=== PATIENT | female | born 1950 | race Caucasian/White ===

== ENCOUNTER 2019-01-18 21:29 | Emergency (ER) | payer MEDICARE, OTHER ==
[~2019-01-18] VITALS: Ht 152.4 cm; Wt 63.5 kg
[2019-01-18 21:40] VITALS: BP_SYST 158
[2019-01-18] MEDS ORDERED: ACETAMINOPHEN 325 MG TABLET PO ONE (22:15)
[2019-01-18 23:43] VITALS: BP_SYST 158
== END 2019-01-18 23:43 | disposition home or self-care (01) ==
LOC: SED 21:29
DX: M17.0 Bilateral primary osteoarthritis of knee (principal); E78.00 Pure hypercholesterolemia, unspecified; E11.9 Type 2 diabetes mellitus without complications; I10 Essential (primary) hypertension
CPT/HCPCS: 99283

== ENCOUNTER 2019-04-23 15:40 | Inpatient (IN) | payer MEDICARE ==
[~2019-04-23] VITALS: Ht 154.9 cm; Wt 71.7 kg
[2019-04-23 15:50] VITALS: BP_SYST 128
--- NOTE | 2019-04-23 15:50 | NUR ---
Patient to ER bed 2 to gown for evaluation. Side rails up. Report given to RENU Cole.
--- NOTE | 2019-04-23 15:55 | NUR ---
Patient AAOx4, primarily Monegasque speaking, accompanied by family. Patient brought in c/o lower abdominal pain, nausea, headache, and weakness. Patient reports PMH of HTN, DM, neuropathy, cholecystectomy, and left hand finger amputations. Skin warm, dry, intact, and respirations even and unlabored. No signs or symptoms of acute distress noted.
--- NOTE | 2019-04-23 16:11 | NUR ---
LEO Christine at bedside examining patient.
[2019-04-23] MEDS ORDERED: ONDANSETRON HCL 4 MG/2 ML VIAL IVP ONE (16:15)
[2019-04-23] MEDS ORDERED: KETOROLAC TROMETHAMINE 15 MG VIAL IVP ONE (16:15)
[2019-04-23] MEDS ORDERED: NACL 0.9% 1,000 ML IV ONE ×2 (16:15→17:15)
[2019-04-23 16:39] LABS: BASOPHILS # (AUTO) 0.2 K/uL (0.0-0.2); BASOPHILS % (AUTO) 0.9 % (0.0-2.0); EOSINOPHILS % (AUTO) 0.1 % (0.0-4.0); HEMATOCRIT 29.2 % (36-48); HEMOGLOBIN 9.7 g/dL (12.0-16.0); LYMPHOCYTES # (AUTO) 2.1 K/uL (1.0-5.5); LYMPHOCYTES % (AUTO) 11.5 % (20.5-51.5); MEAN CORPUSCULAR HEMOGLOBIN 31 pg (27-31); MEAN CORPUSCULAR HGB CONC 33 % (32-36); MEAN CORPUSCULAR VOLUME 93 fL (79.0-98.0); MONOCYTES # (AUTO) 1.4 K/uL (0.0-1.0); MONOCYTES % (AUTO) 7.8 % (1.7-9.3); NEUTROPHILS # (AUTO) 14.5 K/uL (1.8-7.7); NEUTROPHILS % (AUTO) 79.7 % (40.0-70.0); PLATELET COUNT (AUTO) 177 K/uL (130-430); RED BLOOD CELL COUNT(AUTO) 3.16 MIL/uL (4.2-6.2); RED CELL DISTRIBUTION WIDTH 12.2 % (9.0-15.0); WHITE BLOOD COUNT (AUTO) 18.2 K/uL (4.8-10.8)
[2019-04-23 17:14] LABS: CALCIUM 8.9 mg/dL (8.4-11.0); CREATININE 1.73 mg/dL (0.55-1.30)
[2019-04-23] MEDS ORDERED: cefTRIAXone 1 GM IVPB PREMIX 50 ML IV ONE (17:15)
[2019-04-23 17:19] LABS: ALBUMIN 3.4 g/dL (3.4-4.8); TOTAL BILIRUBIN 0.7 mg/dL (0.0-1.0)
[2019-04-23 18:28] LABS: BILIRUBIN,URINE NEGATIVE (NEGATIVE); BLOOD, URINE NEGATIVE (NEGATIVE); CLARITY/URINE CLOUDY (CLEAR); COLOR,URINE YELLOW (YELLOW); GLUCOSE,URINE NEGATIVE (NEGATIVE); KETONES,URINE NEGATIVE (NEGATIVE); LEUKOCYTE ESTERASE ,URINE 3+ (NEGATIVE); NITRITE, URINE NEGATIVE (NEGATIVE); PROTEIN URINE TRACE (NEGATIVE); UROBILINOGEN,URINE 0.2 (0.2-1.0)
[2019-04-23] MEDS ORDERED: SITA100T11 PO (18:42)
[2019-04-23] MEDS ORDERED: GLU500 PO (18:42)
[2019-04-23] MEDS ORDERED: GABA-529 PO (18:42)
[2019-04-23] MEDS ORDERED: CHOL100062 PO (18:42)
[2019-04-23] MEDS ORDERED: LIP20 PO (18:42)
[2019-04-23] MEDS ORDERED: CARV3.1246 PO (18:42)
[2019-04-23] MEDS ORDERED: AMOX500C2 PO (18:42)
--- NOTE | 2019-04-23 18:42 | NUR ---
Medication reconciliation completed with information provided by PATIENT. Any prior medication reconciliation on file was reviewed and corrected.
--- NOTE | 2019-04-23 18:55 | NUR ---
Patient will be admitted to care of Dr. Christensen. Admission to Med Surg unit when hospital room and bed available. Belongings list completed. Summary report printed. Report will be given at bedside.
[2019-04-23 19:09] LABS: BACTERIA,URINE MANY /HPF (None Seen); MUCUS,URINE None Seen /LPF (None Seen); RBC,URINE 0-3 /HPF (0-3); WBC,URINE >100 /HPF (0-3)
--- NOTE | 2019-04-23 19:29 | NUR ---
Endorsed bedside report to oncoming RN for continuation of care.
--- NOTE | 2019-04-23 19:50 | NUR ---
Pt care assumed from RN. Pt stable, no s/s of distress noted. Will continue to monitor.
--- NOTE | 2019-04-23 20:20 | NUR ---
Patient will be admitted to [facility]. Admitted to Med Surg unit. Will go to room 126A. Belongings list completed. Summary report printed. Report will be given at bedside.
--- NOTE | 2019-04-23 20:35 | NUR ---
ADMISSION: The patient, ADAN MONGE, 68 y/o, F admitted by RUFUS LEHMAN MD,with the diagnosis of Acute Pylonephritis , toroom 126b , was given written information regarding hospital policies, unit procedures and contact persons.
[2019-04-23 20:39] VITALS: BP_SYST 140
--- NOTE | 2019-04-23 21:09 | NUR ---
ACCUCHECK BLOOD SUGAR OF 195, 2 UNITS OF INSULIN GIVEN PER SLIDING SCALE.
[2019-04-23] MEDS: INSULIN REGULAR, HUMAN 100 UNITS/ML, 10 ML VIAL (humuLIN R) SUBCUT PRN (21:11)
--- NOTE | 2019-04-23 22:38 | NUR ---
RN ROUNDS: PT AMBULATED TO RESTROOM WITH STEADY GAIT WITH ASSISTANCE FROM HER DAUGHTER. PT TOLERATED ACTIVITY WELL WITH NO SOB NOTED. PT RETURNED TO BED AND REPOSITIONED HERSELF FOR COMFORT. PT ENCOURAGED TO CALL FOR ANY ASSISTANCE. PT'S DAUGHTER REMAINS AT BEDSIDE. SAFETY MAINTAINED. WILL MONITOR.
[2019-04-24] MEDS ORDERED: AMOXICILLIN 500 MG CAPSULE PO SCH (00:15)
[2019-04-24] MEDS ORDERED: cefTRIAXone 1 GM in D5W 50 ML IV SCH (00:15)
[2019-04-24] MEDS ORDERED: GABAPENTIN 100 MG CAPSULE PO SCH (00:15)
[2019-04-24 00:17] VITALS: BP_SYST 115
--- NOTE | 2019-04-24 00:22 | NUR ---
ROUNDS DR. LEHMAN AT NURSES STATION. PT SEEN AND EXAMINED. POC DISCUSSED.
[2019-04-24] MEDS ORDERED: KETOROLAC TROMETHAMINE 15 MG VIAL IVP PRN ×2 (00:30→17:30)
[2019-04-24] MEDS ORDERED: ONDANSETRON HCL 4 MG/2 ML VIAL IVP PRN ×2 (00:30→19:15)
[2019-04-24] MEDS ORDERED: cefTRIAXone 1 GM IVPB PREMIX 50 ML IV ONE (00:39)
[2019-04-24] MEDS ORDERED: HYDROcodone/ACETAMIN 5-325 MG TAB (NORCO/ VICODIN) PO PRN ×2 (00:45→20:15)
[2019-04-24] MEDS ORDERED: traMADol HCL HCL 50 MG TABLET (ULTRAM) PO PRN (00:45)
[2019-04-24] MEDS: NACL 0.9% 1,000 ML IV SCH ×2 (00:51→12:03)
--- NOTE | 2019-04-24 02:05 | NUR ---
RN ROUNDS: PT RESTING IN BED WITH EYES CLOSED, PT'S DAUGHTER IS AT BEDSIDE. VISIBLE SYMMETRICAL RISE AND FALL OF CHEST TO ROOM AIR. IVF INFUSING AT ORDERED RATE. SAFETY MAINTAINED. WILL MONITOR.
--- NOTE | 2019-04-24 04:48 | NUR ---
AMBULATED TO RESTROOM PT AMBULATED WITH STEADY GAIT TO RESTROOM, WITH ASSISTANCE FROM HER DAUGHTER. PT TOLERATED ACTIVITY WELL WITH NO SOB NOTED, NO SIGN OF RESPIRATORY DISTRESS. PT RETURNED TO BED SAFELY. PT ENCOURAGED TO CALL FOR ANY ASSISTANCE, CALL LIGHT IS WITH PT. SAFETY PRECAUTIONS OBSERVED. WILL MONITOR.
[2019-04-24] MEDS: INSULIN REGULAR, HUMAN 100 UNITS/ML, 10 ML VIAL (humuLIN R) SUBCUT PRN ×4 (06:15→22:11)
--- NOTE | 2019-04-24 06:15 | NUR ---
ACCUCHECK/PAIN PT BLOOD SUGAR 177, 2 UNITS REGULAR INSULIN GIVEN PER SLIDING SCALE. PT REPORTING HEADACHE OF MODERATE PAIN LEVEL, TRAMADOL PO GIVEN ORDERED. MEDICATION EXPLAINED TO PT, PT VERBALIZED UNDERSTANDING. SAFETY PRECAUTIONS MAINTAINED. WILL MONITOR.
--- NOTE | 2019-04-24 06:41 | NUR ---
CLOSING NOTE PT RESTING IN BED, AAOX4, WITH DAUGHTER AT BEDSIDE. BREATHING IS EVEN AND EFFORTLESS TO ROOM AIR. IVF INFUSING ORDERED, NO INFILTRATION AT IV SITE. PT HAS BEEN MEDICATED FOR PAIN. NO S/S OF ACUTE DISTRESS. ALL NEEDS MET DURING SHIFT. SAFETY MAINTAINED. WILL CONTINUE TO MONITOR UNTIL PT CARE IS ENDORSED TO DAY SHIFT RN.
--- NOTE | 2019-04-24 08:03 | NUR ---
patient having renal u/s this time.
[2019-04-24 08:49] VITALS: BP_SYST 166
[2019-04-24] MEDS: CARVEDILOL 3.125 MG TABLET (COREG) PO SCH ×2 (08:56→22:05)
[2019-04-24] MEDS: PANTOPRAZOLE SODIUM 40 MG TAB PO SCH (08:57)
[2019-04-24] MEDS: ATORVASTATIN 20 MG TABLET PO SCH (08:57)
[2019-04-24] MEDS: CHOLECALCIFEROL (VITAMIN D3) 2,000 UNIT TABLET PO SCH (09:00)
--- NOTE | 2019-04-24 09:00 | NUR ---
Asked unit secretaty to call Dr Christensen to speak with Dr Olivares for abnormal result.
--- NOTE | 2019-04-24 10:19 | NUR ---
CONSULTATION PAGED/CALLED Reason for Consultation: [] ACUTE APPENDICITIS Person Who was Notified: [] ROSALIA Consulting Physician: [] DR Kalyn MARINA [employer] Setter Specialty: [] GEN SURGEON Ordering Physician: [] DR LEHMAN
[2019-04-24 10:54] LABS: BASOPHILS # (AUTO) 0.1 K/uL (0.0-0.2); BASOPHILS % (AUTO) 0.7 % (0.0-2.0); EOSINOPHILS % (AUTO) 0.3 % (0.0-4.0); LYMPHOCYTES % (AUTO) 16.9 % (20.5-51.5); MEAN CORPUSCULAR HEMOGLOBIN 31 pg (27-31); MEAN CORPUSCULAR HGB CONC 33 % (32-36); MEAN CORPUSCULAR VOLUME 93 fL (79.0-98.0); MONOCYTES # (AUTO) 0.9 K/uL (0.0-1.0); MONOCYTES % (AUTO) 7.3 % (1.7-9.3); NEUTROPHILS # (AUTO) 8.9 K/uL (1.8-7.7); NEUTROPHILS % (AUTO) 74.8 % (40.0-70.0); PLATELET COUNT (AUTO) 148 K/uL (130-430); RED BLOOD CELL COUNT(AUTO) 2.89 MIL/uL (4.2-6.2); RED CELL DISTRIBUTION WIDTH 12.6 % (9.0-15.0); WHITE BLOOD COUNT (AUTO) 11.8 K/uL (4.8-10.8)
[2019-04-24 11:04] LABS: CALCIUM 8.3 mg/dL (8.4-11.0); CREATININE 1.54 mg/dL (0.55-1.30); POTASSIUM 4.7 mmol/L (3.5-5.1)
--- NOTE | 2019-04-24 11:08 | NUR ---
CONSULTATION PAGED/CALLED Reason for Consultation: [] CARDIAC CLEARANCE Person Who was Notified: [] FABIO Consulting Physician: [] DR Ag [facility] Specialty: [] CARDIOLOGY Ordering Physician: [] DR LEHMAN
[2019-04-24 11:09] LABS: PROTHROMBIN TIME 10.5 SECS (9.5-12.5)
[2019-04-24] MEDS: PIPERACILLIN/TAZO 3.375/DEX-IS 50 ML IV SCH ×2 (11:55→18:07)
--- NOTE | 2019-04-24 12:04 | NUR ---
2decho being done this time, pt seen by dr kenney and cleared pt for surgery.
[2019-04-24 14:15] VITALS: BP_SYST 159
--- NOTE | 2019-04-24 15:16 | NUR ---
Dietitian Recommendations * Recommend continuing NPO * Consider advance to diabetic-friendly diet if/when medically appropriate LP, RD Please refer to Nutrition Assessment for details. Addendum: 04/24/19 at [address] Amended: Links added.
[2019-04-24] MEDS: ONDANSETRON HCL 4 MG/2 ML VIAL IVP PRN (15:19)
[2019-04-24 17:01] VITALS: BP_SYST 156
--- NOTE | 2019-04-24 17:23 | NUR ---
ATTENDING MD DR LEHMAN WAS CALLED, RE: PAIN MEDICATION FOR SEVERE VERMA. SPOKE TO SAILAJA.
[2019-04-24] MEDS ORDERED: METOCLOPRAMIDE HCL 10 MG/2 ML VIAL IVP PRN (17:30)
--- NOTE | 2019-04-24 18:30 | NUR ---
PT WHEELED OUT TO SURGERY, BOTH DR MARINA AND MICHELLE SPOKE WITH PATIENT AND PT'S DAUGHTER AT BEDSIDE.
[2019-04-24] MEDS ORDERED: fentaNYL CITRATE/PF 100 MCG/2 ML AMP IVP PRN ×2 (19:15)
--- NOTE | 2019-04-24 19:46 | NUR ---
CLOSING NOTES, PT IN SURGERY FOR LAP APPY. ENDORSED TO NIGHT RENU JAMIL.
--- NOTE | 2019-04-24 20:05 | NUR ---
Opening notes Patient is still in OR.
[2019-04-24] MEDS ORDERED: hydrALAZINE HCL 20 MG/ML VIAL ONE (20:25)
--- NOTE | 2019-04-24 20:40 | NUR ---
Patient back on unit No signs of distress noted. Breathing even and unlabored on room air. Vital signs are stable. Dressing to incisions are clean, dry and intact x3. Educated patient on incentive spirometer. Patient able to inspire 500 ml. Call light with the patient. Safety precautions in place. Family at bedside.
[2019-04-24 21:00] VITALS: BP_SYST 128
[2019-04-24 21:45] VITALS: BP_SYST 128
--- NOTE | 2019-04-24 22:30 | NUR ---
Resting Patient resting in bed, talking to family. No signs of distress noted. Breathing even and unlabored. Call light with the patient. Safety precautions in place.
[2019-04-25] VITALS (7 sets, daily range): BP systolic 132–176
[2019-04-25] MEDS: PIPERACILLIN/TAZO 3.375/DEX-IS 50 ML IV SCH ×5 (00:14→23:32)
[2019-04-25] MEDS: NACL 0.9% 1,000 ML IV SCH ×3 (00:15→22:38)
[2019-04-25] MEDS: ONDANSETRON HCL 4 MG/2 ML VIAL IVP PRN ×2 (00:29→08:18)
--- NOTE | 2019-04-25 00:30 | NUR ---
Pain/Nausea Patient complaining of nausea and pain to head. PRN medications given. Educated the action and side effects of medications. Patient verbalized understanding. No other needs. Call light with the patient. Safety precautions in place.
--- NOTE | 2019-04-25 02:00 | NUR ---
Resting Patient resting, talking to son. No signs of distress noted. Breathing even and unlabored. Call light with the patient. Safety precautions in place. Call light with the patient. Safety precautions in place.
--- NOTE | 2019-04-25 04:00 | NUR ---
Sleeping No signs of distress noted. Breathing even and unlabored. Call light with the patient. Safety precautions in place.
[2019-04-25] MEDS: INSULIN REGULAR, HUMAN 100 UNITS/ML, 10 ML VIAL (humuLIN R) SUBCUT PRN ×4 (06:12→22:38)
[2019-04-25 06:30] LABS: BASOPHILS # (AUTO) 0.1 K/uL (0.0-0.2); BASOPHILS % (AUTO) 0.5 % (0.0-2.0); EOSINOPHILS % (AUTO) 0.1 % (0.0-4.0); HEMATOCRIT 25.4 % (36-48); HEMOGLOBIN 8.5 g/dL (12.0-16.0); LYMPHOCYTES # (AUTO) 1.8 K/uL (1.0-5.5); LYMPHOCYTES % (AUTO) 16.7 % (20.5-51.5); MEAN CORPUSCULAR HEMOGLOBIN 31 pg (27-31); MEAN CORPUSCULAR HGB CONC 34 % (32-36); MEAN CORPUSCULAR VOLUME 93 fL (79.0-98.0); MONOCYTES # (AUTO) 0.7 K/uL (0.0-1.0); MONOCYTES % (AUTO) 6.6 % (1.7-9.3); NEUTROPHILS # (AUTO) 8.3 K/uL (1.8-7.7); NEUTROPHILS % (AUTO) 76.1 % (40.0-70.0); PLATELET COUNT (AUTO) 154 K/uL (130-430); RED BLOOD CELL COUNT(AUTO) 2.73 MIL/uL (4.2-6.2); RED CELL DISTRIBUTION WIDTH 12.7 % (9.0-15.0); WHITE BLOOD COUNT (AUTO) 10.9 K/uL (4.8-10.8)
[2019-04-25 06:50] LABS: ALBUMIN 2.6 g/dL (3.4-4.8); CALCIUM 8.2 mg/dL (8.4-11.0); CREATININE 1.36 mg/dL (0.55-1.30); POTASSIUM 4.8 mmol/L (3.5-5.1); TOTAL BILIRUBIN 0.3 mg/dL (0.0-1.0)
--- NOTE | 2019-04-25 06:50 | NUR ---
Closing notes Patient awake in bed. No signs of distress noted. Breathing even and unlabored. IV patent and intact, infusing fluids. Patient denies pain, has some nausea, but does not want any medications. Dressings are clean,dry and intact. All needs met throughout the shift. call light with the patient. Safety precautions in place. Will endorse care to day shift RN.
--- NOTE | 2019-04-25 07:15 | NUR ---
report received at this time at bedside. patient awake alert x 4. zambian speaking. lungs bilaterally diminished at the bases. abdomen has 3 small dressing noted. no bleeding noted. dry/intact. has iv access on the rt hand #22 with Normal Saline at 80cc/hr infusing on well. bed in low position, alarmed and locked. call lights within reach. instructed to call for assistance. family at the bedside.
[2019-04-25] MEDS: ATORVASTATIN 20 MG TABLET PO SCH (08:25)
[2019-04-25] MEDS: PANTOPRAZOLE SODIUM 40 MG TAB PO SCH (08:25)
[2019-04-25] MEDS: CARVEDILOL 3.125 MG TABLET (COREG) PO SCH ×2 (08:26→20:58)
[2019-04-25] MEDS: metFORMIN HCL 500 MG TABLET PO SCH ×2 (08:26→09:00)
[2019-04-25] MEDS: CHOLECALCIFEROL (VITAMIN D3) 2,000 UNIT TABLET PO SCH (08:27)
--- NOTE | 2019-04-25 09:00 | NUR ---
due medication given as ordered.
--- NOTE | 2019-04-25 10:30 | NUR ---
repositioned to sides. made comfortable.
--- NOTE | 2019-04-25 12:00 | NUR ---
latest bs 186mg/dl. coverage given.
--- NOTE | 2019-04-25 12:30 | NUR ---
iv antibiotic hanged at this time.
[2019-04-25] MEDS ORDERED: cloNIDine HCL 0.1 MG TABLET PO PRN (12:45)
--- NOTE | 2019-04-25 13:00 | NUR ---
GI Patient is nauseated ,bowel sound hypoactive burping, tolerates water , abdominal dressing x3 dry/clean , blood pressure rechecked WNL , out of bed to bathroom 3x , no dizziness., safety/fall precaution initiated.
--- NOTE | 2019-04-25 13:40 | NUR ---
endorsed to Kalani SEARS
--- NOTE | 2019-04-25 14:00 | NUR ---
Patient nausea is better after Reglan IV push was given, tolerating clear liquids diet.
[2019-04-25] MEDS ORDERED: ACETAMINOPHEN 325 MG TABLET PO PRN (14:45)
[2019-04-25] MEDS ORDERED: KETOROLAC TROMETHAMINE 15 MG VIAL IVP PRN (14:45)
--- NOTE | 2019-04-25 15:34 | NUR ---
Mobility Out of bed to bathroom with standby assist tolerates well without dizziness.
--- NOTE | 2019-04-25 17:12 | NUR ---
Note At family request, CONVEYOR MECHANIC provided patient's son, Isai, with a note for work stating he was here last night with patient. Patient agreed.
--- NOTE | 2019-04-25 20:00 | NUR ---
INITIAL NOTE AT INITIAL ASSESSMENT, PATIENT IS RESTING IN BED, STABLE, NO SIGNS OF RESPIRATORY DISTRESS. FAMILY IS AT BEDSIDE. PATIENT VERBALIZES NO PAIN. PLAN OF CARE FOR THE EVENING IS COMMUNICATED WITH THE PATIENT AND HER FAMILY. PATIENT SUCCESSFULLY DEMONSTRATES CORRECT USAGE OF CALL LIGHT. BED IS LOCKED, ALARMED, AND AT THE LOWEST LEVEL. FALL, SAFETY, AND RESPIRATORY PRECAUTIONS WILL BE TAKEN THROUGHOUT THE SHIFT.
--- NOTE | 2019-04-25 20:39 | NUR ---
PAGED PAGED DR. LEHMAN IN REGARDS TO CRITICAL LAB VALUES, SPOKE DOUG
--- NOTE | 2019-04-25 21:00 | NUR ---
ISOLATION: MDRO AND E.COLI OF URINE NEW CRITICAL LAB FOR POSITIVE URINE CULTURE FOR MDRO AND E.COLI OF URINE COMMUNICATION AND EDUCATION ARE DONE AT THIS TIME WITH THE PATIENT AND HER FAMILY. ALL QUESTIONS HAVE BEEN ADDRESSED. CHARGE NURSE [place] AND ROSALINE BURR ARE MADE AWARE, ISOLATION SIGN PLACED IN FRONT OF PATIENT'S ROOM.
--- NOTE | 2019-04-25 22:00 | NUR ---
NOTE BLOOD SUGAR CHECK REQUIRES INSULIN COVERAGE PER SSI ORDERED BY MD. PATIENT IS RESTING IN BED, STABLE, NO SIGNS OF RESPIRATORY DISTRESS. CALL LIGHT WITHIN REACH. BED IS LOCKED, ALARMED, AND AT THE LOWEST LEVEL.
--- NOTE | 2019-04-26 | NUR ---
INCENTIVE SPIROMETER TEACHING NOTE PATIENT SUCCESSFULLY DEMONSTRATES CORRECT USAGE OF INCENTIVE SPIROMETER. AT THIS TIME, SHE IS AVERAGING 500 ML WITHOUT PAIN DURING USAGE. PATIENT VERBALIZES KNOWLEDGE TO "PRACTICE 10 TIMES AN HOUR". HER OXYGEN SATURATION IS AT A STABLE 99% ON ROOM AIR. WILL CONTINUE TO ENCOURAGE USAGE OF INCENTIVE SPIROMETER THROUGHOUT THE SHIFT.
[2019-04-26 00:44] VITALS: BP_SYST 131
--- NOTE | 2019-04-26 02:00 | NUR ---
NOTE PATIENT IS SLEEPING, STABLE, NO SIGNS OF RESPIRATORY DISTRESS. CALL LIGHT WITHIN REACH. BED IS LOCKED, ALARMED, AND AT THE LOWEST LEVEL.
--- NOTE | 2019-04-26 04:00 | NUR ---
NOTE PATIENT IS SLEEPING, STABLE, NO SIGNS OF RESPIRATORY DISTRESS. CALL LIGHT WITHIN REACH. BED IS LOCKED, ALARMED, AND AT THE LOWEST LEVEL.
--- NOTE | 2019-04-26 06:00 | NUR ---
CLOSING NOTE PATIENT SLEPT WELL THROUGHOUT THE NIGHT, SHE VERBALIZED NO PAIN THROUGHOUT THE NIGHT. AT THIS TIME, SHE IS RESTING IN BED, STABLE, NO SIGNS OF RESPIRATORY DISTRESS. CALL LIGHT WITHIN REACH. BED IS LOCKED, ALARMED, AND AT THE LOWEST LEVEL. FALL, SAFETY, RESPIRATORY, AND ISOLATION PRECAUTIONS HAVE BEEN TAKEN THROUGHOUT THE SHIFT. WILL CONTINUE TO MONITOR UNTIL SHIFT REPORT IS GIVEN AT BEDSIDE TO AM NURSE.
[2019-04-26 06:27] LABS: BASOPHILS # (AUTO) 0.1 K/uL (0.0-0.2); BASOPHILS % (AUTO) 0.7 % (0.0-2.0); EOSINOPHILS # (AUTO) 0.1 K/uL (0.0-0.4); HEMATOCRIT 24.7 % (36-48); HEMOGLOBIN 8.2 g/dL (12.0-16.0); LYMPHOCYTES # (AUTO) 1.7 K/uL (1.0-5.5); LYMPHOCYTES % (AUTO) 19.9 % (20.5-51.5); MEAN CORPUSCULAR HEMOGLOBIN 31 pg (27-31); MEAN CORPUSCULAR HGB CONC 33 % (32-36); MEAN CORPUSCULAR VOLUME 93 fL (79.0-98.0); MONOCYTES # (AUTO) 0.7 K/uL (0.0-1.0); MONOCYTES % (AUTO) 8.2 % (1.7-9.3); NEUTROPHILS # (AUTO) 6.2 K/uL (1.8-7.7); NEUTROPHILS % (AUTO) 70.2 % (40.0-70.0); PLATELET COUNT (AUTO) 152 K/uL (130-430); RED BLOOD CELL COUNT(AUTO) 2.64 MIL/uL (4.2-6.2); RED CELL DISTRIBUTION WIDTH 12.4 % (9.0-15.0); WHITE BLOOD COUNT (AUTO) 8.8 K/uL (4.8-10.8)
[2019-04-26] MEDS: PIPERACILLIN/TAZO 3.375/DEX-IS 50 ML IV SCH ×2 (06:35→11:38)
[2019-04-26] MEDS: INSULIN REGULAR, HUMAN 100 UNITS/ML, 10 ML VIAL (humuLIN R) SUBCUT PRN ×2 (06:38→11:40)
[2019-04-26 06:56] LABS: ALBUMIN 2.5 g/dL (3.4-4.8); CREATININE 1.47 mg/dL (0.55-1.30); POTASSIUM 3.4 mmol/L (3.5-5.1); TOTAL BILIRUBIN 0.4 mg/dL (0.0-1.0)
--- NOTE | 2019-04-26 07:30 | NUR ---
OPENING NOTE: RECEIVED REPORT FROM [employer]URING CONSULTANT. PATIENT IS RESTING COMFORTABLY IN BED. NO S/S OF DISTRESS OR SOB. PATIENT IS ALERT AND ORIENTED. IV IS PATENT AND INFUSING. NO COMPLAINTS OF PAIN. PATIENT IS ALERT AND ORIENTED, ABLE TO EXPRESS NEEDS, AND ASK FOR ASSISTANCE. CALL LIGHT IN REACH, BED IN LOWEST POSITION, AND WILL CONTINUE TO MONITOR.
[2019-04-26 08:11] VITALS: BP_SYST 162
[2019-04-26] MEDS: CHOLECALCIFEROL (VITAMIN D3) 2,000 UNIT TABLET PO SCH (08:50)
[2019-04-26] MEDS: CARVEDILOL 3.125 MG TABLET (COREG) PO SCH (08:50)
[2019-04-26] MEDS: ATORVASTATIN 20 MG TABLET PO SCH (08:50)
[2019-04-26] MEDS: PANTOPRAZOLE SODIUM 40 MG TAB PO SCH (08:50)
[2019-04-26] MEDS: NACL 0.9% 1,000 ML IV SCH (08:52)
[2019-04-26 11:06] LABS: BASOPHILS # (AUTO) 0.1 K/uL (0.0-0.2); EOSINOPHILS # (AUTO) 0.1 K/uL (0.0-0.4); HEMATOCRIT 28.4 % (36-48); HEMOGLOBIN 9.5 g/dL (12.0-16.0); LYMPHOCYTES # (AUTO) 2.1 K/uL (1.0-5.5); LYMPHOCYTES % (AUTO) 19.3 % (20.5-51.5); MEAN CORPUSCULAR HEMOGLOBIN 31 pg (27-31); MEAN CORPUSCULAR HGB CONC 33 % (32-36); MEAN CORPUSCULAR VOLUME 93 fL (79.0-98.0); MONOCYTES # (AUTO) 0.8 K/uL (0.0-1.0); MONOCYTES % (AUTO) 7.9 % (1.7-9.3); NEUTROPHILS # (AUTO) 7.7 K/uL (1.8-7.7); PLATELET COUNT (AUTO) 199 K/uL (130-430); RED BLOOD CELL COUNT(AUTO) 3.07 MIL/uL (4.2-6.2); RED CELL DISTRIBUTION WIDTH 12.6 % (9.0-15.0); WHITE BLOOD COUNT (AUTO) 10.8 K/uL (4.8-10.8)
[2019-04-26 11:12] LABS: BASOPHILS % (AUTO) 0.7 % (0.0-2.0); EOSINOPHILS % (AUTO) 1.1 % (0.0-4.0)
[2019-04-26 11:21] LABS: TOTAL IRON BIND. CAPACITY 235 ug/dL (250-450)
--- NOTE | 2019-04-26 12:00 | NUR ---
RN ROUNDS PATIENT IS RESTING COMFORTABLY IN BED. NO S/S OF DISTRESS OR SOB. PATIENT IS AWAKE AND ALERT. FAMILY AT BEDSIDE. NO COMPLAINTS AT THIS TIME. CALL LIGHT IN REACH, BED IN LOWEST POSITION, AND WILL CONTINUE TO MONITOR.
[2019-04-26 12:38] VITALS: BP_SYST 152
[2019-04-26] MEDS ORDERED: CEPHALEXIN 500 MG CAPSULE PO ONE (12:45)
[2019-04-26] MEDS ORDERED: CEPH-568 PO (13:21)
[2019-04-26] MEDS ORDERED: L.RH1CAP PO (13:22)
[2019-04-26 13:35] VITALS: BP_SYST 152
--- NOTE | 2019-04-26 14:04 | NUR ---
D/C Patient Patient given medication reconciliation form and D/C instructions. Exit Care provided. Patient verbalized understanding. MD discussed with patient the results and treatment provided. Ambulatory with steady gait for discharge to home. Patient in stable condition, ID band removed. IV catheter removed, intact and dressing applied, no active bleeding. Rx of Keflex and probiotic given. Patient educated on pain management. All belongings sent with patient.
[2019-04-26] MEDS ORDERED: CEPHALEXIN 500 MG CAPSULE PO SCH (18:00)
== END 2019-04-26 14:04 | disposition home or self-care (01) | DRG 853 ==
LOC: SED 15:40 → SMU 18:49
PROVIDERS: ADMIT Internal Medicine; ATTEND Internal Medicine
PROC: 0DTJ4ZZ Resection of Appendix, Percutaneous Endoscopic Approach (ICD-10-PCS; principal; 2019-04-24 18:35)
DX: A41.9 Sepsis, unspecified organism (principal); N17.0 Acute kidney failure with tubular necrosis; N10 Acute pyelonephritis; K35.80 Unspecified acute appendicitis; E44.0 Moderate protein-calorie malnutrition; B96.20 Unspecified Escherichia coli [E. coli] as the cause of diseases classified elsewhere; D63.8 Anemia in other chronic diseases classified elsewhere; R79.89 Other specified abnormal findings of blood chemistry; E78.5 Hyperlipidemia, unspecified; E66.3 Overweight; E11.65 Type 2 diabetes mellitus with hyperglycemia; I10 Essential (primary) hypertension; Z87.440 Personal history of urinary (tract) infections; Z90.49 Acquired absence of other specified parts of digestive tract; Z79.899 Other long term (current) drug therapy; Z79.84 Long term (current) use of oral hypoglycemic drugs; Z89.022 Acquired absence of left finger(s); Z68.29 Body mass index [BMI] 29.0-29.9, adult
CPT/HCPCS: 36415; 71045; 76770; 80048; 80053; 81000-TC; 82962; 83036; 83540-TC; 83550-TC; 83605; 83690-TC; 85025; 85610-TC; 87040-TC; 87081; 87086; 87186-TC; 88304; 93005; 93306; 94010; 96361; 96365; 99285; C1727; J0360; J0696; J1815; J1885; J1956; J2405; J2543; J2765; J7030; J7060

== ENCOUNTER 2022-09-26 11:07 | Inpatient (IN) | payer MEDICARE ==
[~2022-09-26] VITALS: Ht 152.4 cm; Wt 70.8 kg
[~2022-09-26 11:07] MED LIST: CARV3.1246 PO; CEPH-568 PO; CHOL100062 PO; GABA-529 PO; L.RH1CAP PO; LIP20 PO; SITA100T11 PO
[2022-09-26 11:22] VITALS: BP_SYST 201
[2022-09-26] MEDS ORDERED: NACL 0.9% 1,000 ML IV ONE (13:30)
[2022-09-26] MEDS ORDERED: DEXTROSE 50% JECT 50 ML DISP.SYRIN IVP PRN (14:15)
[2022-09-26] MEDS ORDERED: ATOR20TA64 PO (14:15)
[2022-09-26] MEDS ORDERED: INSU100I68 SUBCUT (14:15)
[2022-09-26] MEDS ORDERED: CHOL100062 PO (14:15)
[2022-09-26] MEDS ORDERED: METF-380 PO (14:15)
[2022-09-26] MEDS ORDERED: DOCU-156 PO (14:15)
[2022-09-26 14:29] LABS: BASOPHILS # (AUTO) 0.1 K/uL (0.0-0.2); BASOPHILS % (AUTO) 1.1 % (0.0-2.0); EOSINOPHILS # (AUTO) 0.1 K/uL (0.0-0.4); EOSINOPHILS % (AUTO) 0.9 % (0.0-4.0); HEMATOCRIT 31.8 % (36-48); HEMOGLOBIN 10.6 g/dL (12.0-16.0); LYMPHOCYTES # (AUTO) 2.9 K/uL (1.0-5.5); LYMPHOCYTES % (AUTO) 30.4 % (20.5-51.5); MEAN CORPUSCULAR HEMOGLOBIN 30 pg (27-31); MEAN CORPUSCULAR HGB CONC 33 % (32-36); MEAN CORPUSCULAR VOLUME 90 fL (79.0-98.0); MONOCYTES # (AUTO) 0.7 K/uL (0.0-1.0); MONOCYTES % (AUTO) 7.4 % (1.7-9.3); NEUTROPHILS # (AUTO) 5.7 K/uL (1.8-7.7); NEUTROPHILS % (AUTO) 60.2 % (40.0-70.0); PLATELET COUNT (AUTO) 225 K/uL (130-430); RED BLOOD CELL COUNT(AUTO) 3.53 MIL/uL (4.2-6.2); RED CELL DISTRIBUTION WIDTH 12.9 % (9.0-15.0); WHITE BLOOD COUNT (AUTO) 9.5 K/uL (4.8-10.8)
[2022-09-26 14:41] LABS: ANION GAP 7 (5-15); CHLORIDE 101 mmol/L (98-107); CREATININE 1.47 mg/dL (0.55-1.30); GLUCOSE 232 mg/dL (70-99); UREA NITROGEN, BLOOD 37 mg/dL (8-21)
[2022-09-26 14:56] LABS: ALANINE AMINOTRANSFERASE 23 U/L (12-78); ALBUMIN 3.9 g/dL (3.4-4.8); ASPARTATE AMINOTRANSFERASE 21 U/L (10-37); TOTAL BILIRUBIN 0.3 mg/dL (0.0-1.0)
[2022-09-26 14:59] LABS: INR 0.9 (0.8-1.2); PROTHROMBIN TIME 9.5 SECS (9.5-12.5)
[2022-09-26] MEDS ORDERED: LR 1,000 ML IV ONE (15:00)
[2022-09-26] MEDS ORDERED: PIPERACILLIN/TAZO 3.375 GM in NS 50 ML IV ONE (15:00)
[2022-09-26 15:54] LABS: ERYTHROCYTE SEDIMENTATION RATE 53 MM/HR (0-20)
[2022-09-26] MEDS ORDERED: PIPERACILLIN/TAZOBACTAM 3.375 GM/VIAL (ZOSYN) IV ONE (16:19)
[2022-09-26] MEDS ORDERED: GABAPENTIN 100 MG CAPSULE PO PRN (17:00)
[2022-09-26] MEDS ORDERED: DOCUSATE SODIUM 100 MG CAPSULE PO PRN (17:00)
[2022-09-26] MEDS ORDERED: NALOXONE HCL 0.4 MG/ML AMP (NARCAN) IVP PRN (17:00)
[2022-09-26] MEDS ORDERED: ONDANSETRON HCL 4 MG/2 ML VIAL IVP PRN (17:00)
[2022-09-26] MEDS ORDERED: MORPHINE 2 MG/ML INJ. SYRINGE IVP PRN (17:00)
[2022-09-26] MEDS ORDERED: PHENOL/ORAL ANESTHETIC 177 ML BOTTLE MM PRN (17:00)
[2022-09-26] MEDS ORDERED: CARVEDILOL 3.125 MG TABLET (COREG) PO ONE (17:15)
[2022-09-26] MEDS ORDERED: PANTOPRAZOLE SODIUM 40 MG/VIAL (PROTONIX) IVP ONE (17:30)
[2022-09-26 17:50] VITALS: BP_SYST 152
[2022-09-26 20:00] VITALS: BP_SYST 158
[2022-09-26] MEDS: LACTOBACILLUS RHAMNOSUS GG 1 CAP CAPSULE PO SCH (20:59)
[2022-09-26] MEDS ORDERED: INSULIN GLARGINE YFGN SUBCUT SCH (21:00)
[2022-09-26] MEDS: INSULIN GLARGINE 100 UNITS/ML, 10 ML VIAL SUBCUT SCH (21:01)
[2022-09-26] MEDS: PIPERACILLIN/TAZO 3.375/DEX-IS 50 ML IV SCH (23:31)
[2022-09-27] VITALS: BP_SYST 154
[2022-09-27 04:00] VITALS: BP_SYST 149
[2022-09-27] MEDS: PIPERACILLIN/TAZO 3.375/DEX-IS 50 ML IV SCH ×3 (06:28→18:04)
[2022-09-27] MEDS: INSULIN REGULAR, HUMAN 100 UNITS/ML, 3 ML VIAL (humuLIN R) SUBCUT PRN ×3 (06:28→17:59)
[2022-09-27] MEDS: LACTOBACILLUS RHAMNOSUS GG 1 CAP CAPSULE PO SCH ×2 (09:46→21:06)
[2022-09-27] MEDS: PANTOPRAZOLE SODIUM 40 MG/VIAL (PROTONIX) IVP SCH (09:48)
[2022-09-27] MEDS: ATORVASTATIN 20 MG TABLET PO SCH (09:48)
[2022-09-27] MEDS: CHOLECALCIFEROL (VITAMIN D3) 2,000 UNIT TABLET PO SCH (09:48)
[2022-09-27] MEDS: CARVEDILOL 3.125 MG TABLET (COREG) PO SCH ×2 (09:53→21:07)
[2022-09-27 11:56] VITALS: BP_SYST 176
[2022-09-27] MEDS: cloNIDine HCL 0.1 MG TABLET PO PRN (12:14)
[2022-09-27 15:27] VITALS: BP_SYST 114
[2022-09-27] MEDS: 0.45% NACL 1,000 ML IV SCH (18:04)
[2022-09-27 20:00] VITALS: BP_SYST 152
[2022-09-27] MEDS: INSULIN GLARGINE 100 UNITS/ML, 10 ML VIAL SUBCUT SCH (21:09)
[2022-09-28] MEDS: PIPERACILLIN/TAZO 3.375/DEX-IS 50 ML IV SCH ×5 (00:07→23:47)
[2022-09-28 01:26] VITALS: BP_SYST 158
[2022-09-28] MEDS: INSULIN REGULAR, HUMAN 100 UNITS/ML, 3 ML VIAL (humuLIN R) SUBCUT PRN ×5 (06:00→21:37)
[2022-09-28 07:01] LABS: BASOPHILS # (AUTO) 0.1 K/uL (0.0-0.2); BASOPHILS % (AUTO) 0.7 % (0.0-2.0); EOSINOPHILS # (AUTO) 0.1 K/uL (0.0-0.4); EOSINOPHILS % (AUTO) 1.7 % (0.0-4.0); HEMATOCRIT 27.6 % (36-48); HEMOGLOBIN 9.3 g/dL (12.0-16.0); LYMPHOCYTES # (AUTO) 2.8 K/uL (1.0-5.5); LYMPHOCYTES % (AUTO) 32.4 % (20.5-51.5); MEAN CORPUSCULAR HEMOGLOBIN 30 pg (27-31); MEAN CORPUSCULAR HGB CONC 34 % (32-36); MEAN CORPUSCULAR VOLUME 90 fL (79.0-98.0); MONOCYTES # (AUTO) 0.8 K/uL (0.0-1.0); MONOCYTES % (AUTO) 9.8 % (1.7-9.3); NEUTROPHILS # (AUTO) 4.7 K/uL (1.8-7.7); NEUTROPHILS % (AUTO) 55.4 % (40.0-70.0); PLATELET COUNT (AUTO) 200 K/uL (130-430); RED BLOOD CELL COUNT(AUTO) 3.08 MIL/uL (4.2-6.2); WHITE BLOOD COUNT (AUTO) 8.5 K/uL (4.8-10.8)
[2022-09-28] MEDS ORDERED: MIDAZOLAM HCL 5 MG/5 ML VIAL ONE (07:12)
[2022-09-28] MEDS ORDERED: fentaNYL CITRATE/PF 100 MCG/2 ML AMP ONE (07:12)
[2022-09-28 07:25] LABS: ANION GAP 9 (5-15); CALCIUM 8.8 mg/dL (8.4-11.0); CHLORIDE 105 mmol/L (98-107); CREATININE 1.48 mg/dL (0.55-1.30); GLUCOSE 159 mg/dL (70-99); UREA NITROGEN, BLOOD 19 mg/dL (8-21)
[2022-09-28 08:00] VITALS: BP_SYST 148
[2022-09-28] MEDS: PANTOPRAZOLE SODIUM 40 MG/VIAL (PROTONIX) IVP SCH (08:25)
[2022-09-28] MEDS: LACTOBACILLUS RHAMNOSUS GG 1 CAP CAPSULE PO SCH ×2 (08:25→20:07)
[2022-09-28] MEDS: ATORVASTATIN 20 MG TABLET PO SCH (08:25)
[2022-09-28] MEDS: CARVEDILOL 3.125 MG TABLET (COREG) PO SCH ×2 (08:26→20:06)
[2022-09-28] MEDS: CHOLECALCIFEROL (VITAMIN D3) 2,000 UNIT TABLET PO SCH (08:26)
[2022-09-28 12:00] VITALS: BP_SYST 145
[2022-09-28] MEDS: 0.45% NACL 1,000 ML IV SCH ×2 (14:00→23:47)
[2022-09-28 16:00] VITALS: BP_SYST 133
[2022-09-28 16:14] LABS: TOTAL IRON BIND. CAPACITY 330 ug/dL (250-450)
[2022-09-28 20:00] VITALS: BP_SYST 157
[2022-09-28] MEDS: INSULIN GLARGINE 100 UNITS/ML, 10 ML VIAL SUBCUT SCH (21:20)
[2022-09-29 01:28] VITALS: BP_SYST 158
[2022-09-29] MEDS: PIPERACILLIN/TAZO 3.375/DEX-IS 50 ML IV SCH ×3 (04:32→17:53)
[2022-09-29 08:00] VITALS: BP_SYST 151
[2022-09-29 08:20] LABS: BASOPHILS # (AUTO) 0.1 K/uL (0.0-0.2); BASOPHILS % (AUTO) 0.9 % (0.0-2.0); EOSINOPHILS # (AUTO) 0.2 K/uL (0.0-0.4); EOSINOPHILS % (AUTO) 2.5 % (0.0-4.0); HEMATOCRIT 29.9 % (36-48); LYMPHOCYTES # (AUTO) 2.9 K/uL (1.0-5.5); LYMPHOCYTES % (AUTO) 38.8 % (20.5-51.5); MEAN CORPUSCULAR HEMOGLOBIN 30 pg (27-31); MEAN CORPUSCULAR HGB CONC 33 % (32-36); MEAN CORPUSCULAR VOLUME 90 fL (79.0-98.0); MONOCYTES # (AUTO) 0.7 K/uL (0.0-1.0); MONOCYTES % (AUTO) 9.7 % (1.7-9.3); NEUTROPHILS # (AUTO) 3.6 K/uL (1.8-7.7); NEUTROPHILS % (AUTO) 48.1 % (40.0-70.0); PLATELET COUNT (AUTO) 221 K/uL (130-430); RED BLOOD CELL COUNT(AUTO) 3.31 MIL/uL (4.2-6.2); RED CELL DISTRIBUTION WIDTH 13.1 % (9.0-15.0); WHITE BLOOD COUNT (AUTO) 7.5 K/uL (4.8-10.8)
[2022-09-29 08:33] LABS: ANION GAP 10 (5-15); CHLORIDE 104 mmol/L (98-107); CREATININE 1.61 mg/dL (0.55-1.30); GLUCOSE 165 mg/dL (70-99); UREA NITROGEN, BLOOD 18 mg/dL (8-21)
[2022-09-29] MEDS: ATORVASTATIN 20 MG TABLET PO SCH (08:49)
[2022-09-29] MEDS: CHOLECALCIFEROL (VITAMIN D3) 2,000 UNIT TABLET PO SCH (08:49)
[2022-09-29] MEDS: CARVEDILOL 3.125 MG TABLET (COREG) PO SCH (08:50)
[2022-09-29] MEDS: LACTOBACILLUS RHAMNOSUS GG 1 CAP CAPSULE PO SCH (08:50)
[2022-09-29] MEDS: PANTOPRAZOLE SODIUM 40 MG/VIAL (PROTONIX) IVP SCH (08:51)
[2022-09-29] MEDS: INSULIN REGULAR, HUMAN 100 UNITS/ML, 3 ML VIAL (humuLIN R) SUBCUT PRN (11:40)
[2022-09-29 12:20] VITALS: BP_SYST 170
[2022-09-29] MEDS: cloNIDine HCL 0.1 MG TABLET PO PRN (12:45)
[2022-09-29 14:05] VITALS: BP_SYST 128
[2022-09-29] MEDS ORDERED: AMOX-423 PO (14:26)
[2022-09-29 15:03] VITALS: BP_SYST 128
[2022-09-29 16:15] VITALS: BP_SYST 161
[2022-09-29] MEDS ORDERED: CARV6.2554 PO (16:25)
[2022-09-29] MEDS ORDERED: cloNIDine HCL 0.1 MG TABLET PO ONE ×3 (16:30→18:30)
[2022-09-29] MEDS ORDERED: CARVEDILOL 6.25 MG TABLET (COREG) PO ONE (18:00)
== END 2022-09-29 19:10 | disposition home or self-care (01) | DRG 156 ==
LOC: SED 11:07 → SMU 14:24
PROVIDERS: ADMIT Internal Medicine; ATTEND Internal Medicine
PROC: 0DB78ZX Excision of Stomach, Pylorus, Via Natural or Artificial Opening Endoscopic, Diagnostic (ICD-10-PCS; principal; 2022-09-28 09:45)
DX: T17.228A Food in pharynx causing other injury, initial encounter (principal); J02.9 Acute pharyngitis, unspecified; D63.8 Anemia in other chronic diseases classified elsewhere; E11.21 Type 2 diabetes mellitus with diabetic nephropathy; I10 Essential (primary) hypertension; Z20.822 Contact with and (suspected) exposure to COVID-19; E78.5 Hyperlipidemia, unspecified; E66.9 Obesity, unspecified; E78.00 Pure hypercholesterolemia, unspecified; Z79.899 Other long term (current) drug therapy; Z79.4 Long term (current) use of insulin; Z68.30 Body mass index [BMI] 30.0-30.9, adult
CPT/HCPCS: 36415; 43239; 70360-TC; 70491-TC; 71045; 71250-TC; 76376; 80048; 80053; 82962; 83540; 83550; 83605; 85025; 85610-TC; 85651-TC; 85730-TC; 87040; 88305; 88312; 88313; 93005; 96361; 96365; 99285; C9113; J1815; J2250; J2543; J3010; J7120; Q9967